=== PATIENT | male | born 1935 | race Caucasian/White ===

== ENCOUNTER → 2017-02-19 | Outpatient (CLI) | payer OTHER ==
[~2017-02-19] MED LIST: ADULT LOW DOSE81 M1 PO; ALLOPURINOL100 MG PO; AMARYL2 MG PO; ATENOLOL/CHLOR1 EAC1 PO; ATENOLOL/CHLOR1 EAC2 PO; ATENOLOL50 MG PO; CRESTOR20 MG PO; ENDOCET 5-3251 EACH PO; FISH OIL 1,0001 EAC7 PO; FISH OIL CONC1 EACH PO; GLIMEPIRIDE2 MG PO; LISINOPRIL40 MG PO; LOSARTAN POTASS50 MG PO; PRAVACHOL40 MG PO; PRINIVIL40 MG PO; SINGULAIR10 MG PO; TAMSULOSIN HCL0.4 MG PO; ZANTAC300 MG PO
[2017-02-19 14:38] LABS: EOSINOPHIL (%) 1.8 % (0-5); EOSINOPHIL COUNT 0.1 K/uL (0-0.3); HEMATOCRIT 41.5 % (38.0-50.0); IMMATURE GRANULOCYTE (%) 0.3 % (0.0-0.7); INSTRUMENT ABS NEUTROPHIL CT 4.4 K/uL; LYMPHOCYTE COUNT 1.5 K/uL (1.0-2.8); MCH 28.8 PG (29.0-34.0); MCHC 32.8 G/DL (30.0-36.0); MCV 87.7 FL (86-99); MONOCYTE (%) 6.8 % (3-12); MONOCYTE COUNT 0.4 K/uL (0-0.8); NEUTROPHIL (%) 67.1 % (45-76); NEUTROPHIL COUNT 4.4 K/uL (1.8-6.4); PLATELET COUNT 237 K/uL (156-360); RBC DIS.WIDTH-CV 15.1 % (11.8-14.6); RBC DIS.WIDTH-SD 48.3 % (39-53); RED BLOOD COUNT 4.73 M/uL (4.00-5.50); WHITE BLOOD COUNT 6.5 K/uL (4.1-10.2)
[2017-02-19 14:52] LABS: INTER. NORMALIZED RATIO 1.1; PROTHROMBIN TIME 11.7 (9.2-11.2); PTT 29.7 (25-32)
[2017-02-19 17:56] LABS: TYPE OF FLUID THORACENTESIS
[2017-02-19 18:30] LABS: BODY FLUID EOSINOPHILS 0 % (0-25); BODY FLUID RBC'S 1000 /MM^3 (0-100); BODY FLUID WBC'S 796 /MM^3 (0-500); MONONUCLEAR WBC'S 74 %; POLYNUCLEAR WBC'S 26 % (0-25)
[2017-02-19 18:39] LABS: BODY FLUID LDH 73 IU/L
[2017-02-19 19:06] LABS: BODY FLUID PROTEIN < 3.0 G/DL
== END | disposition home or self-care (01) ==
LOC: AMB 13:54
PROVIDERS: Internal Medicine Pulmonary Disease
PROC: 0W9B3ZZ Drainage of Left Pleural Cavity, Percutaneous Approach (ICD-10-PCS; principal; 2017-02-19)
DX: J90 Pleural effusion, not elsewhere classified (principal); J44.9 Chronic obstructive pulmonary disease, unspecified; Z87.891 Personal history of nicotine dependence; R91.1 Solitary pulmonary nodule; Z77.090 Contact with and (suspected) exposure to asbestos; R06.02 Shortness of breath; J30.9 Allergic rhinitis, unspecified; I10 Essential (primary) hypertension; E78.5 Hyperlipidemia, unspecified; I25.9 Chronic ischemic heart disease, unspecified; E11.9 Type 2 diabetes mellitus without complications; Z79.84 Long term (current) use of oral hypoglycemic drugs; Z80.0 Family history of malignant neoplasm of digestive organs; Z83.3 Family history of diabetes mellitus; Z79.82 Long term (current) use of aspirin
CPT/HCPCS: 71010; 82785 90; 82945; 83615 91; 84157; 85025; 85610; 85730; 86003 90; 87070; 87075; 87116; 87205; 87206; 88108; 88305; 89051

== ENCOUNTER 2017-06-01 08:02 | Emergency (ER) | payer OTHER ==
[~2017-06-01] VITALS: Ht 167.6 cm; Wt 71.1 kg
[2017-06-01 09:41] LABS: ADD MIUA? YES; BILIRUBIN NEGATIVE; BLOOD LARGE; GLUCOSE (STRIP) NEGATIVE; KETONES NEGATIVE; LEUKOCYTES NEGATIVE; NITRITE NEGATIVE; PROTEIN (STRIP) 100; SPECIFIC GRAVITY 1.011 (1.000-1.030); UROBILINOGEN 0.2 MG/DL (0.2-1.0)
[2017-06-01 09:45] LABS: COLOR RED ((YELLOW))
[2017-06-01 09:56] LABS: RED BLOOD CELLS TNTC /HPF (0-5)
[2017-06-01 09:57] LABS: UCUL ADDED? YES
[2017-06-01 10:11] LABS: EOSINOPHIL (%) 2.5 % (0-5); EOSINOPHIL COUNT 0.2 K/uL (0-0.3); IMMATURE GRANULOCYTE (%) 0.2 % (0.0-0.7); INSTRUMENT ABS NEUTROPHIL CT 6.2 K/uL; LYMPHOCYTE COUNT 1.7 K/uL (1.0-2.8); MCH 28.4 PG (29.0-34.0); MCHC 32.9 G/DL (30.0-36.0); MCV 86.4 FL (86-99); MEAN PLAT.VOLUME 9.6 uM^3 (9.0-12.4); MONOCYTE (%) 5.1 % (3-12); MONOCYTE COUNT 0.4 K/uL (0-0.8); NEUTROPHIL (%) 72.1 % (45-76); NEUTROPHIL COUNT 6.2 K/uL (1.8-6.4); PLATELET COUNT 210 K/uL (156-360); RBC DIS.WIDTH-SD 47.9 % (39-53); RED BLOOD COUNT 4.86 M/uL (4.00-5.50); WHITE BLOOD COUNT 8.6 K/uL (4.1-10.2)
[2017-06-01 10:20] LABS: CHLORIDE 101 mEq/L (99-109); POTASSIUM 4.6 mEq/L (3.7-5.4); SODIUM 137 mEq/L (136-147)
[2017-06-01 10:22] LABS: GLUCOSE 93 mg/dL (70-99)
[2017-06-01 10:24] LABS: ANION GAP 13 MEQ/L (2-14); TOTAL BILIRUBIN 1.1 mg/dL (0.0-1.0)
[2017-06-01 10:25] LABS: INTER. NORMALIZED RATIO 1.2; PROTHROMBIN TIME 12.9 SEC (10.2-12.9)
[2017-06-01 10:26] LABS: ALKALINE PHOSPHATASE 145 IU/L (3-129); GFR ESTIMATE (CALCULATED) 41 mL/min/
[2017-06-01 10:27] LABS: UREA NITROGEN (BUN) 25 mg/dL (9-23)
[2017-06-01 10:28] LABS: DIRECT BILIRUBIN 0.5 mg/dL (0.0-0.3)
[2017-06-01 10:34] LABS: PTT 34.7 SEC (25-37)
[2017-06-01 13:17] VITALS: BP 158/86
== END 2017-06-01 13:17 | disposition home or self-care (01) ==
LOC: EME 08:02
PROVIDERS: Emergency Medicine
DX: R31.9 Hematuria, unspecified (principal); J44.9 Chronic obstructive pulmonary disease, unspecified; I10 Essential (primary) hypertension; E78.5 Hyperlipidemia, unspecified; E11.9 Type 2 diabetes mellitus without complications; I25.2 Old myocardial infarction; Z95.1 Presence of aortocoronary bypass graft; Z87.891 Personal history of nicotine dependence
CPT/HCPCS: 80048; 80076; 81003; 83605; 84484; 85025; 85610; 85730; 87086; 99281; 99284